=== PATIENT | female | born 1995 | race Caucasian/White ===

== ENCOUNTER 2016-08-19 11:47 | Emergency (ER) | payer OTHER ==
[2016-08-19 11:56] VITALS: TEMP 98.1; BMI 25.2
--- NOTE | 2016-08-19 12:13 | PDOC ---
History of Present Illness - General History Source: Patient, Family Exam Limitations: No Limitations - History of Present Illness Initial Comments: 08/19/16 13:27 The patient is a 21 year old female (16 weeks ) with no significant past medical history, who presents to the emergency department with rash and headache for the past 2 days. The patient states her rash began on her abdomen which spread to her extremities and trunk. She describes the rash as pink and painful that becomes itchy dry.The patient reports subjective fever 2 days ago which gradually resolved. She reports her mild diffuse headache is non throbbing and constant with nausea. Patient attributes her nausea after drinking a glass of milk. Patient states her last US was last week upstairs at [facility] which was normal. 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 Patient denies neck pain, neck stiffness, chills, photobphobia Patient denies any tick exposure or prolonged exposure to wooded environment or big bites. Patient denies novel food exposures, product exposures, new detergents. Patient denies any known allergies to medications. She denies chest pain or dizziness. She denies vomit, diarrhea or constipation. She denies dysuria, frequency, urgency or hematuria. Allergies: NKA Past surgical history: None Social history: None PCP: None <Chelsey Triplett - Last Filed: 08/19/16 13:27> <Americo Evangelista - Last Filed: 08/19/16 14:44> - General Chief Complaint: Rash Stated Complaint: RASH, Headache, 17wks Time Seen by Provider: 08/19/16 12:13 Past History <Chelsey Triplett - Last Filed: 08/19/16 13:27> - Past Medical History Other medical history: denies - Psycho/Social/Smoking Cessation Hx Suicidal Ideation: No Smoking History: Never smoked Hx Alcohol Use: No Drug/Substance Use Hx: No Substance Use Type: None <Americo Evangelista - Last Filed: 08/19/16 14:44> - Past Medical History Allergies/Adverse Reactions: Allergies Allergy/AdvReac Type Severity Reaction Status Date / Time No Known Allergies Allergy Verified 08/19/16 11:56 Home Medications: Ambulatory Orders Diphenhydramine HCl [Benadryl -] 25 mg PO Q6H PRN #28 capsule 08/19/16 Review of Systems - Review of Systems Able to Perform ROS?: Yes Comments:: 08/19/16 13:27 CONSTITUTIONAL: Absent: fever, chills, diaphoresis, generalized weakness, malaise, loss of appetite HEENT: Absent: rhinorrhea, nasal congestion, throat pain, throat swelling, difficulty swallowing, mouth swelling, ear pain, eye pain, visual Changes CARDIOVASCULAR: Absent: chest pain, syncope, palpitations, irregular heart rate, lightheadedness , peripheral edema RESPIRATORY: Absent: cough, shortness of breath, dyspnea with exertion, orthopnea, wheezing, stridor, hemoptysis GASTROINTESTINAL:+nausea. Absent: abdominal pain, abdominal distension, vomiting, diarrhea, constipation, melena, hematochezia GENITOURINARY: Absent: dysuria, frequency, urgency, hesitancy, hematuria, flank pain, genital pain MUSCULOSKELETAL: Absent: myalgia, arthralgia, joint swelling SKIN: + Rash, +Itching Absent: pallor HEMATOLOGIC/IMMUNOLOGIC: Absent: easy bleeding, easy bruising, lymphadenopathy, frequent infections ENDOCRINE: Absent: unexplained weight gain, unexplained weight loss, heat intolerance, cold intolerance NEUROLOGIC: +headache Absent: focal weakness or paresthesias, dizziness, unsteady gait, seizure, mental status changes, bladder or bowel incontinence PSYCHIATRIC: Absent: anxiety, depression, suicidal or homicidal ideation, hallucinations. <Chelsey Triplett - Last Filed: 08/19/16 13:27> *Physical Exam - Vital Signs Last Vital Signs Temp Pulse Resp BP Pulse Ox 98.1 F 92 H 18 101/55 99 08/19/16 11:54 08/19/16 11:54 08/19/16 11:54 08/19/16 11:54 08/19/16 11:54 - Physical Exam Comments: 08/19/16 13:28 GENERAL: Well developed, well nourished. Awake and alert. In no acute distress. HEENT: Normocephalic, atraumatic. PERRLA, EOMI. No conjunctival pallor. Sclera are non- icteric. Moist mucous membranes. Oropharynx is clear. NECK: Supple. Full ROM. No JVD. Carotid pulses 2+ and symmetric, without bruits. No thyromegaly. No lymphadenopathy. CARDIOVASCULAR: Regular rate and rhythm. No murmurs, rubs, or gallops. Distal pulses are 2+ and symmetric. PULMONARY: No evidence of respiratory distress. Lungs clear to auscultation bilaterally. No wheezing, rales or rhonchi. ABDOMINAL: Soft. Non-tender. Non-distended. No rebound or guarding. No organomegaly. Normoactive bowel sounds. MUSCULOSKELETAL Normal range of motion at all joints. No bony deformities or tenderness. No CVA tenderness. EXTREMITIES: No cyanosis. No clubbing. No edema. No calf tenderness. SKIN: +Erythematous, urticarial patches and macules at the abdomen, extremities, lower back, R ear and R cheek which jeramy. Warm and dry. Normal capillary refill. No jaundice. NEUROLOGICAL: Alert, awake, appropriate. Cranial nerves 2-12 intact. No deficits to light touch and temperature in face, upper extremities and lower extremities. No motor deficits in the in face, upper extremities and lower extremities. Normoreflexic in the upper and lower extremities. Normal speech. Toes are downgoing bilaterally. Gait is normal without ataxia. PSYCHIATRIC: Cooperative. Good eye contact. Appropriate mood and affect. <Chelsey Triplett - Last Filed: 08/19/16 13:27> - Vital Signs Last Vital Signs Temp Pulse Resp BP Pulse Ox 98.1 F 92 H 18 101/55 99 08/19/16 11:54 08/19/16 11:54 08/19/16 11:54 08/19/16 11:54 08/19/16 11:54 <Americo Evangelista - Last Filed: 08/19/16 14:44> ED Treatment Course - LABORATORY CBC & Chemistry Diagram: 08/19/16 13:05 <Chelsey Triplett - Last Filed: 08/19/16 13:27> - LABORATORY CBC & Chemistry Diagram: 08/19/16 12:36 08/19/16 13:05 <Americo Evangelista - Last Filed: 08/19/16 14:44> Medical Decision Making - Medical Decision Making 08/19/16 12:47 Dr. Barrientos paged via phone answering service at 12:[address] Barrientos returned the page at 1:11 PM and the patient case was discussed. <Chelsey Triplett - Last Filed: 08/19/16 13:27> - Medical Decision Making 05/04/17 12:48 The patient is well-appearing and in no acute distress Her chief complaint is rash, and she minimizes the headache, stating on further questioning that it has been coming and going for months The lesions are macular and patchy There are erythematous They jeramy The discrete lesions do not look urticarial, however, they are not changing location Furthermore, they seem to involve and eventually resolved with a central area of minimal crusting Will obtain labs including CBC, CMP, coags, ESR, CRP Will consult infectious disease 08/19/16 13:17 Case discussed with infectious disease They will see the patient in consultation 08/19/16 14:18 Labs noted including hypoalbuminemia with low total protein Urinalysis pending Other labs pending 08/19/16 14:22 The patient's headache has resolved 08/19/16 14:42 The patient was seen by infectious disease They feel that this rash is not infectious, but rather represents transient urticaria of The patient feels comfortable with the plan of discharge and will follow-up with infectious disease as well as obstetrics Clinical impression: Rash in I discussed the physical exam findings, ancillary test results and final diagnoses with the patient. I answered all of the patient's questions. The patient was satisfied with the care received and felt comfortable with the discharge plan and treatment plan. The patient will call their primary care physician within 24 hours to arrange follow-up and will return to the Emergency Department with any new, persistent or worsening symptoms. A portion of this note was documented by scribe services under my direction. I have reviewed the details of the note, within reason, and agree with the documentation with the following case summary and management plan written by me. <Americo Evangelista - Last Filed: 08/19/16 14:44> *DC/Admit/Observation/Transfer - Attestations Scribe Attestion: 08/19/16 13:28 Documentation prepared by Chelsey Triplett, acting as biomedical service engineer for Americo Evangelista MD/DO. <Chelsey Triplett - Last Filed: 08/19/16 13:27> <Americo Evangelista - Last Filed: 08/19/16 14:44> Diagnosis at time of Disposition: Rash - Discharge Dispostion Disposition: HOME Condition at time of disposition: Stable - Prescriptions Prescriptions: Diphenhydramine HCl [Benadryl -] 25 mg PO Q6H PRN #28 capsule PRN Reason: Rash - Referrals Referrals: Roby Barrientos MD [Staff Physician] - Call tomorrow - Patient Instructions Printed Discharge Instructions: DI for Rash, DI for Hives Additional Instructions: Return to the emergency department immediately with ANY new, persistent or worsening symptoms. You MUST call and follow up with your doctor tomorrow. Please make sure your doctor reviews the results of your emergency department evaluation.
[2016-08-19 13:21] LABS: BASOPHIL 0.4 % (0-2.0); EOSINOPHIL 2.3 % (0-4.5); MCH 30.9 pg (25.7-33.7); MCHC 34.2 g/dl (32.0-36.0); MEAN CELL VOLUME 90.5 fl (80-96); MEAN PLT VOLUME 8.1 fl (7.5-11.1); NEUTROPHILS 68.1 % (42.8-82.8); PLATELET COUNT 199 K/MM3 (134-434); RDW 13.7 % (11.6-15.6)
[2016-08-19 13:42] LABS: INR 1.03 (0.82-1.09); PROTHROMBIN TIME (PATIENT) 11.3 SEC (9.98-11.88)
[2016-08-19 13:43] LABS: ALBUMIN 2.8 g/dl (3.4-5.0); ANION GAP 10 (8-16); CALCIUM 8.4 mg/dL (8.5-10.1); CO2 24 mmol/L (21-32); CREATININE 0.5 mg/dL (0.55-1.02); GLUCOSE,RANDOM 74 mg/dL (74-106); SGOT/AST 16 U/L (15-37); SGPT/ALT 21 U/L (12-78)
[2016-08-19 13:45] LABS: ALK PHOS 59 U/L (45-117); BILIRUBIN,TOTAL 0.1 mg/dL (0.2-1.0); C-REACTIVE PROTEIN 0.4 MG/DL (0.00-0.3); TOT PROT 6.1 g/dl (6.4-8.2)
[2016-08-19 14:45] LABS: URINE APPEARANCE CLEAR; URINE BILIRUBIN NEGATIVE (NEGATIVE); URINE BLOOD NEGATIVE (NEGATIVE); URINE COLOR COLORLESS; URINE GLUCOSE (UA) NEGATIVE (NEGATIVE); URINE KETONE NEGATIVE (NEGATIVE); URINE NITRITE NEGATIVE (NEGATIVE); URINE PROTEIN NEGATIVE (NEGATIVE); URINE UROBILINOGEN NEGATIVE E.U./dl (0.2-1.0)
[2016-08-19 14:47] LABS: URINE LEUK ESTERASE TRACE (NEGATIVE)
[2016-08-19 14:48] LABS: URINE RBC <1 /hpf (0-3); URINE WBC 1 /hpf (3-5)
[2016-08-19 14:58] VITALS: BP 102/65; PULSE 98
[2016-08-19 19:38] LABS: HIV 1 & 2 AB NEGATIVE; HIV 1 AGp24 NEGATIVE
[2016-08-21 14:11] LABS: PARV B19 IGG 5.8 index (0.0-0.8); PARV B19 IGM 0.1 index (0.0-0.8)
[2016-08-21 16:16] LABS: VARICELLA-ZOSTER IGM < 0.91 index (0.00-0.90)
[2016-08-22 00:06] LABS: EPSTEIN BARR ANTIBODY IgM <36.0 U/mL (0.0-35.9)
== END 2016-08-19 14:59 | disposition home or self-care (01) ==
LOC: JER 11:47
DX: O99.89 Other specified diseases and conditions complicating pregnancy, childbirth and the puerperium (principal); R21 Rash and other nonspecific skin eruption; Z3A.17 17 weeks gestation of pregnancy
CPT/HCPCS: 36415; 80053; 81003; 81015; 84702; 85025; 85610; 85651; 85730; 86140; 86644; 86645; 86665; 86747; 86778; 86787; 87389; 99284-25

== ENCOUNTER 2017-01-09 06:30 | Inpatient (IN) | payer OTHER ==
[2017-01-09 07:17] VITALS: BMI 28.3
[2017-01-09] MEDS ORDERED: WITCH HAZEL 50% (TUCKS) 40 PAD/JAR PAD TP PRN (07:57)
[2017-01-09] MEDS ORDERED: BISACODYL 10 MG SUPP.RECT RC PRN (07:57)
[2017-01-09] MEDS ORDERED: BENZOCAINE 28 GM HEMORRHOIDAL OINTMENT TP PRN (07:57)
[2017-01-09] MEDS ORDERED: METHYLERGONOVINE MALEATE 0.2 MG/1 ML AMP IM PRN (07:57)
[2017-01-09] MEDS ORDERED: BENZOCAINE 20% 57 GM BOTTLE TP PRN (07:57)
--- NOTE | 2017-01-09 07:57 | HP ---
Past Medical History - Admission Chief Complaint: Labor pain History of Present Illness: 21 yo @ 38 weeks gestation, presents to L&D in active labor and pushing. History Source: Patient Limitations to Obtaining History: No Limitations - Past Medical History ...: 2 ...Para: 1 ...Term: 1 ...: 0 ...Spon : 0 ...Induced : 0 ...Multiple Gestation: 0 ...LMP: 04/25/16 ... Weeks Gestation by Dates: 37.0 ...EDC by Dates: 01/30/17 ...EDC by Sono: 01/22/17 - Past Surgical History Past Surgical History: Yes: None Hx Myomectomy: No Hx Transabdominal Cerclage: No - Smoking History Smoking history: Never smoked Have you smoked in the past 12 months: No - Alcohol/Substance Use Hx Alcohol Use: No History of Substance Use: reports: None - Social History History of Recent Travel: No Home Medications - Allergies Allergies/Adverse Reactions: Allergies Allergy/AdvReac Type Severity Reaction Status Date / Time No Known Allergies Allergy Verified 08/19/16 11:56 - Home Medications Home Medications: Ambulatory Orders Ferrous Sulfate [Feosol] 325 mg PO DAILY 01/09/17 Vit/Iron Fumarate/FA [ Tablet] 1 tablet PO DAILY 01/09/17 Review of Systems - Review of Systems Constitutional: reports: No Symptoms Eyes: reports: No Symptoms HENT: reports: No Symptoms Neck: reports: No Symptoms Cardiovascular: reports: No Symptoms Respiratory: reports: No Symptoms Gastrointestinal: reports: No Symptoms Genitourinary: reports: Pain Breasts: reports: No Symptoms Reported Musculoskeletal: reports: No Symptoms Integumentary: reports: No Symptoms Neurological: reports: No Symptoms Endocrine: reports: No Symptoms Hematology/Lymphatic: reports: No Symptoms Psychiatric: reports: No Symptoms Pain Intensity: 10 Physical Exam - Maternity Vital Signs: Vital Signs Temperature 98.2 F 01/09/17 06:30 Pulse Rate 74 01/09/17 07:31 Respiratory Rate 18 01/09/17 07:31 Blood Pressure 119/66 01/09/17 07:31 O2 Sat by Pulse Oximetry (%) Constitutional: Yes: Well Nourished Eyes: Yes: Conjunctiva Clear HENT: Yes: Atraumatic Neck: Yes: Supple Cardiovascular: Yes: Regular Rate and Rhythm Lungs: Clear to auscultation - Abdominal Exam/OB Number of Fetuses: Single Presentation: Vertex - Vaginal Exam/OB Vaginal Bleediing: Light Dilatation (cm): 9 Effacement (%): 100 Amniotic Membrane Status: Ruptured Station: 0 - Physical Exam ...Motor Strength: WNL Psychiatric: Yes: Alert, Oriented Problem List - Problems (1) Status post normal vaginal delivery Code(s): TWF8905 - Assessment/Plan Active labor Admit to L&D
[2017-01-09] MEDS ORDERED: D5W-LR W/ 20 UNITS OXYTOCIN 1,000 ML IV SCH (08:00)
[2017-01-09] MEDS ORDERED: DEXTROSE 5%-LACTATED RINGERS 1,000 ML IV SCH (08:00)
--- NOTE | 2017-01-09 08:03 | PN ---
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 Nose / Oropharynx suctioned @ perineum. Cord clamped and cut. Placenta expelled spontaneously intact. Laceration repaired with 2.0 Chromic.
[2017-01-09 08:14] LABS: INR 0.96 (0.82-1.09); PROTHROMBIN TIME (PATIENT) 10.5 SEC (9.98-11.88)
[2017-01-09 08:17] LABS: ACTIVATED PTT 27.5 SECONDS (26.9-34.4)
[2017-01-09] MEDS: ACETAMINOPHEN 325 MG TABLET (FP) PO PRN (08:43)
[2017-01-09] MEDS: IBUPROFEN 600 MG TABLET (FP) PO PRN (08:45)
[2017-01-09] MEDS: FERROUS SO4 325 MG TABLET (FP) PO SCH ×3 (08:46→17:41)
[2017-01-09 08:52] LABS: ANION GAP 10 (8-16); CALCIUM 7.8 mg/dL (8.5-10.1); CO2 20 mmol/L (21-32); CREATININE 0.6 mg/dL (0.55-1.02)
[2017-01-09 09:04] LABS: GLUCOSE,RANDOM 355 mg/dL (74-106)
[2017-01-09] MEDS ORDERED: LACTATED RINGERS SOLUTION 1,000 ML IV SCH (10:00)
[2017-01-09 10:49] LABS: BASOPHIL 0.3 % (0-2.0); EOSINOPHIL 0.8 % (0-4.5); MCH 30.4 pg (25.7-33.7); MCHC 33.3 g/dl (32.0-36.0); MEAN CELL VOLUME 91.3 fl (80-96); MEAN PLT VOLUME 8.9 fl (7.5-11.1); NEUTROPHILS 73.5 % (42.8-82.8); PLATELET COUNT 223 K/MM3 (134-434); RDW 13.8 % (11.6-15.6)
[2017-01-09] MEDS: PRENATAL VITAMINS W/ FOLIC ACID TABLET (FP) PO SCH (11:17)
[2017-01-09 12:45] LABS: ALBUMIN 2.1 g/dl (3.4-5.0); ALK PHOS 289 U/L (45-117); ANION GAP 8 (8-16); BILIRUBIN,TOTAL 0.4 mg/dL (0.2-1.0); CALCIUM 8.2 mg/dL (8.5-10.1); CO2 23 mmol/L (21-32); CREATININE 0.4 mg/dL (0.55-1.02); GLUCOSE,RANDOM 64 mg/dL (74-106); SGOT/AST 32 U/L (15-37); SGPT/ALT 42 U/L (12-78); TOT PROT 5.6 g/dl (6.4-8.2)
[2017-01-10] MEDS: ACETAMINOPHEN 325 MG TABLET (FP) PO PRN ×3 (01:51→21:19)
[2017-01-10] MEDS: IBUPROFEN 600 MG TABLET (FP) PO PRN ×3 (01:52→21:20)
[2017-01-10 07:54] LABS: BASOPHIL 0.3 % (0-2.0); EOSINOPHIL 1.7 % (0-4.5); MCH 30.4 pg (25.7-33.7); MEAN CELL VOLUME 89.3 fl (80-96); MEAN PLT VOLUME 8.4 fl (7.5-11.1); NEUTROPHILS 68.5 % (42.8-82.8); PLATELET COUNT 228 K/MM3 (134-434); RDW 13.6 % (11.6-15.6)
[2017-01-10] MEDS: FERROUS SO4 325 MG TABLET (FP) PO SCH ×3 (08:40→18:13)
[2017-01-10] MEDS: PRENATAL VITAMINS W/ FOLIC ACID TABLET (FP) PO SCH (09:27)
[2017-01-10] MEDS ORDERED: DIPHTH,PERTUSS(ACELL),TET 0.5 ML DISP.SYRIN IM ONE (10:00)
[2017-01-10] MEDS ORDERED: FLU VACC QS2017-18 36MOS UP/PF 60 MCG/0.5 ML SYRINGE IM ONE (10:00)
--- NOTE | 2017-01-10 10:04 | PN ---
Post Progress Note - Subjective Subjective: 21 yo Para 2 status post vaginal delivery, seen and evaluated. Doing well. Post Day: 1 Type of Delivery: Vital Signs: Vital Signs Temperature 97.9 F 01/10/17 09:13 Pulse Rate 73 01/10/17 09:13 Respiratory Rate 18 01/10/17 09:13 Blood Pressure 106/76 01/10/17 09:13 O2 Sat by Pulse Oximetry (%) Breast Exam: Yes: Soft Uterus: Yes: Fundus Firm Abdomen/GI: Yes: Abdomen soft, Tolerating PO Lochia: Yes: Rubra Lochia, amount: Small Extremities: Yes: Calves non-tender Perineum: Yes: Laceration (Healing) Activity: Ambulating - Labs Labs: CBC WBC 11.0 K/mm3 (4.0-10.0) H D 01/10/17 06:00 RBC 3.86 M/mm3 (3.60-5.2) 01/10/17 06:00 Hgb 11.7 GM/dL (10.7-15.3) 01/10/17 06:00 Hct 34.4 % (32.4-45.2) 01/10/17 06:00 MCV 89.3 fl (80-96) 01/10/17 06:00 MCH 30.4 pg (25.7-33.7) 01/10/17 06:00 MCHC 34.0 g/dl (32.0-36.0) 01/10/17 06:00 RDW 13.6 % (11.6-15.6) 01/10/17 06:00 Plt Count 228 K/MM3 (134-434) 01/10/17 06:00 MPV 8.4 fl (7.5-11.1) 01/10/17 06:00 Neutrophils % 68.5 % (42.8-82.8) 01/10/17 06:00 Lymphocytes % 23.6 % (8-40) 01/10/17 06:00 Monocytes % 5.9 % (3.8-10.2) 01/10/17 06:00 Eosinophils % 1.7 % (0-4.5) D 01/10/17 06:00 Basophils % 0.3 % (0-2.0) 01/10/17 06:00 Problem List - Problems (1) Status post normal vaginal delivery Code(s): APB5695 - Assessment/Plan Status post vaginal delivery Stable Continue routine care
[2017-01-10] MEDS ORDERED: SENNOSIDES/DOCUSATE COMBO (SENNA PLUS) TABLET (UD) PO PRN (22:00)
[2017-01-11] MEDS: FERROUS SO4 325 MG TABLET (FP) PO SCH ×2 (08:00→12:05)
[2017-01-11] MEDS: PRENATAL VITAMINS W/ FOLIC ACID TABLET (FP) PO SCH (09:13)
[2017-01-11] MEDS: IBUPROFEN 600 MG TABLET (FP) PO PRN (09:13)
[2017-01-11] MEDS: ACETAMINOPHEN 325 MG TABLET (FP) PO PRN (09:14)
[2017-01-11 13:44] VITALS: BP 99/56; PULSE 59; TEMP 97.6
== END 2017-01-11 13:00 | disposition home or self-care (01) | DRG 560 ==
LOC: JLDR 06:30 → J3W 08:09
PROVIDERS: ADMIT Obstetrics & Gynecology; ATTEND Obstetrics & Gynecology
PROC: 10E0XZZ Delivery of Products of Conception, External Approach (ICD-10-PCS; principal; 2017-01-09)
PROC: 0W8NXZZ Division of Female Perineum, External Approach (ICD-10-PCS; 2017-01-09)
PROC: 0KQM0ZZ Repair Perineum Muscle, Open Approach (ICD-10-PCS; 2017-01-09)
DX: O70.1 Second degree perineal laceration during delivery (principal); Z3A.38 38 weeks gestation of pregnancy; Z37.0 Single live birth
CPT/HCPCS: 36415; 80048; 80053; 85025; 85610; 85730; 86593; 86850; 86900; 86901; 90686; 90715; G0008

== ENCOUNTER 2019-11-06 18:00 | Inpatient (IN) | payer OTHER ==
[2019-11-06 18:40] VITALS: BMI 25.3
[2019-11-06 20:52] LABS: BASO % 0.2 % (0-2.0); EOS % 0.3 % (0-4.5); HEMATOCRIT 35.3 % (32.4-45.2); HEMOGLOBIN 12.1 GM/dL (10.7-15.3); LYMPH % 15.6 % (8-40); MCH 31.6 pg (25.7-33.7); MCHC 34.3 g/dl (32.0-36.0); MEAN PLT VOLUME 8.8 fl (7.5-11.1); MONO % 5.8 % (3.8-10.2); NEUT % 78.1 % (42.8-82.8); PLATELET COUNT 255 K/MM3 (134-434); RBC 3.84 M/mm3 (3.60-5.2); RDW 13.2 % (11.6-15.6); WHITE BLOOD COUNT 9.6 K/mm3 (4.0-10.0)
[2019-11-06] MEDS ORDERED: DEXTROSE 5%-LACTATED RINGERS 1,000 ML IV SCH (21:00)
--- NOTE | 2019-11-06 21:01 | HP ---
Past Medical History - Admission Chief Complaint: Contractions pain History of Present Illness: 24 yo @38 weeks gestation, EDC 11/21/19, admitted for augmentation of labor. Upon admission she was 4cm dilated. History Source: Patient Limitations to Obtaining History: No Limitations - Past Medical History ...: 3 ...Para: 2 ...Term: 2 ...: 0 ...Spon : 0 ...Induced : 0 ...Living Children: 2 ...Multiple Gestation: 0 ... Weeks Gestation by Dates: 38 ...EDC by Sono: 11/21/19 - Past Surgical History Past Surgical History: Yes: None Hx Myomectomy: No Hx Transabdominal Cerclage: No - Smoking History Smoking history: Never smoked Have you smoked in the past 12 months: No - Alcohol/Substance Use Hx Alcohol Use: No History of Substance Use: reports: None - Social History History of Recent Travel: No Home Medications - Allergies Allergies/Adverse Reactions: Allergies Allergy/AdvReac Type Severity Reaction Status Date / Time No Known Allergies Allergy Verified 11/06/19 18:40 - Home Medications Home Medications: Ambulatory Orders Vit/Iron Fum/Folic AC [ Tablet] 1 tablet PO DAILY 01/09/17 Family Medical History Family History: Unremarkable Review of Systems - Review of Systems Constitutional: reports: No Symptoms Eyes: reports: No Symptoms HENT: reports: No Symptoms Neck: reports: No Symptoms Cardiovascular: reports: No Symptoms Respiratory: reports: No Symptoms Gastrointestinal: reports: No Symptoms Genitourinary: reports: Pain Breasts: reports: No Symptoms Reported Musculoskeletal: reports: No Symptoms Integumentary: reports: No Symptoms Neurological: reports: No Symptoms Psychiatric: reports: No Symptoms Pain Intensity: 5 Physical Exam - Maternity Vital Signs: Vital Signs Temperature 98.5 F 11/06/19 19:00 Pulse Rate 104 H 11/06/19 19:00 Respiratory Rate 18 11/06/19 19:00 Blood Pressure 100/62 11/06/19 19:00 O2 Sat by Pulse Oximetry (%) Constitutional: Yes: No Distress Eyes: Yes: Conjunctiva Clear HENT: Yes: Atraumatic Neck: Yes: Supple Cardiovascular: Yes: Regular Rate and Rhythm Lungs: Clear to auscultation - Abdominal Exam/OB Number of Fetuses: Single Presentation: Vertex Category: I - Vaginal Exam/OB Vaginal Bleeding: No Dilatation (cm): 4 Effacement (%): 70 Amniotic Membrane Status: Ruptured Amniotic Fluid: Yes: Clear Presentation: Vertex/Position Station: -2 - Physical Exam Musculoskeletal: Yes: WNL Extremities: Yes: WNL ...Motor Strength: WNL Psychiatric: Yes: Alert, Oriented Problem List - Problems (1) 38 weeks gestation of Problems reviewed: Yes Code(s): Z3A.38 - 38 WEEKS GESTATION OF (2) Pain during labor Problems reviewed: Yes Code(s): O99.89 - OTH DISEASES AND CONDITIONS COMPL PREG/CHLDBRTH; R52 - PAIN, UNSPECIFIED Assessment/Plan 38 weeks gestation Contractions pain Admit for augmentation of labor Analgesia as needed Anticipate
[2019-11-06] MEDS ORDERED: BUTORPHANOL TARTRATE 2 MG/ML VIAL IVPUSH PRN (21:02)
[2019-11-06] MEDS ORDERED: PROMETHAZINE HCL 25 MG/1 ML VIAL IVPUSH ONE (21:02)
[2019-11-06] MEDS ORDERED: OXYTOCIN 30 UNITS in 0.9% NS 30 UNIT/500 ML INFUS.BAG IVPB ONE (21:06)
[2019-11-06 21:08] LABS: INR 0.92 (0.83-1.09); PROTHROMBIN TIME (PATIENT) 10.9 SEC (9.7-13.0)
[2019-11-06 21:11] LABS: ACTIVATED PTT 25.5 SECONDS (25.2-36.5)
[2019-11-06] MEDS ORDERED: OXYTOCIN 30 UNITS in 0.9% NS 30 UNIT/500 ML INFUS.BAG IVPB SCH (21:15)
[2019-11-06 21:19] LABS: BLOOD UREA NITROGEN 7.3 mg/dL (7-18); CALCIUM 8.7 mg/dL (8.5-10.1); CREATININE 0.5 mg/dL (0.55-1.3); POTASSIUM 3.9 mmol/L (3.5-5.1)
[2019-11-06] MEDS ORDERED: PROMETHAZINE HCL 25 MG/1 ML VIAL ONE (21:19)
[2019-11-06] MEDS ORDERED: BUTORPHANOL TARTRATE 2 MG/ML VIAL ONE (21:19)
[2019-11-06] MEDS ORDERED: OXYTOCIN 20 UNITS in 0.9% NS 20 UNIT/1,000 ML INFUS.BAG IV ONE (21:33)
[2019-11-06] MEDS ORDERED: BISACODYL 10 MG SUPP.RECT RC PRN (21:59)
[2019-11-06] MEDS ORDERED: METHYLERGONOVINE MALEATE 0.2 MG/1 ML AMP IM PRN (21:59)
[2019-11-06] MEDS ORDERED: WITCH HAZEL 50% (TUCKS) 40 PAD/JAR PAD TP PRN (21:59)
[2019-11-06] MEDS ORDERED: BENZOCAINE 28 GM HEMORRHOIDAL OINTMENT TP PRN (21:59)
[2019-11-06] MEDS ORDERED: BENZOCAINE 20% 57 GM BOTTLE TP PRN (21:59)
[2019-11-06] MEDS: FERROUS SO4 325 MG TABLET (FP) PO SCH (22:00)
[2019-11-06] MEDS ORDERED: OXYTOCIN 20 UNITS in 0.9% NS 20 UNIT/1,000 ML INFUS.BAG IV SCH (22:00)
--- NOTE | 2019-11-06 22:03 | PN ---
Delivery - Delivery Vaginal Delivery: Spontaneous Episiotomy/Laceration: 2nd degree EBL (cc): 300 Delivery, Single - Fosters Feeding Plan Initial Plan: Exclusive throughout hospitalization Remarks - Remarks Remarks: Normal spontaneous vaginal delivery of a live infant girl over second degree laceration. Nose / Oropharynx suctioned @ perineum. Cord clamped and cut. Baby handed to mother then to nurse. Placenta removed spontaneously intact. Laceration repaired with 2.0 chromic and 2.0 Biosyn. Mother in stable condition.
[2019-11-07] MEDS: IBUPROFEN 600 MG TABLET (FP) PO PRN ×4 (01:38→20:20)
[2019-11-07] MEDS: ACETAMINOPHEN 325 MG TABLET (FP) PO PRN ×4 (01:38→20:19)
--- NOTE | 2019-11-07 07:21 | PN ---
Post Progress Note - Subjective Subjective: 24 yo Para 3 status post vaginal delivery, seen and evaluated. Doing well. Post Day: 1 Type of Delivery: Vital Signs: Vital Signs Temperature 98.4 F 11/07/19 05:55 Pulse Rate 80 11/07/19 05:55 Respiratory Rate 18 11/07/19 05:55 Blood Pressure 116/66 11/07/19 05:55 O2 Sat by Pulse Oximetry (%) 99 11/07/19 00:26 Breast Exam: Yes: Soft Uterus: Yes: Fundus Firm Abdomen/GI: Yes: Abdomen soft, Tolerating PO Lochia: Yes: Rubra Lochia, amount: Moderate Extremities: Yes: Calves non-tender Perineum: Yes: Laceration (Healing) Activity: Ambulating - Labs Labs: CBC WBC 9.6 K/mm3 (4.0-10.0) 11/06/19 20:12 RBC 3.84 M/mm3 (3.60-5.2) 11/06/19 20:12 Hgb 12.1 GM/dL (10.7-15.3) 11/06/19 20:12 Hct 35.3 % (32.4-45.2) 11/06/19 20:12 MCV 92.0 fl (80-96) 11/06/19 20:12 MCH 31.6 pg (25.7-33.7) 11/06/19 20:12 MCHC 34.3 g/dl (32.0-36.0) 11/06/19 20:12 RDW 13.2 % (11.6-15.6) 11/06/19 20:12 Plt Count 255 K/MM3 (134-434) 11/06/19 20:12 MPV 8.8 fl (7.5-11.1) 11/06/19 20:12 Absolute Neuts (auto) 7.5 K/mm3 (1.5-8.0) 11/06/19 20:12 Neutrophils % 78.1 % (42.8-82.8) 11/06/19 20:12 Lymphocytes % 15.6 % (8-40) D 11/06/19 20:12 Monocytes % 5.8 % (3.8-10.2) 11/06/19 20:12 Eosinophils % 0.3 % (0-4.5) D 11/06/19 20:12 Basophils % 0.2 % (0-2.0) 11/06/19 20:12 Nucleated RBC % 0 % (0-0) 11/06/19 20:12 Problem List - Problems (1) 38 weeks gestation of Problems reviewed: Yes Code(s): Z3A.38 - 38 WEEKS GESTATION OF (2) Pain during labor Problems reviewed: Yes Code(s): O99.89 - OTH DISEASES AND CONDITIONS COMPL PREG/CHLDBRTH; R52 - PAIN, UNSPECIFIED (3) Status post normal vaginal delivery Problems reviewed: Yes Code(s): [id number] - Assessment/Plan Status post vaginal delivery Stable Continue routine care
[2019-11-07 09:09] LABS: BASO % 0.1 % (0-2.0); EOS % 0.2 % (0-4.5); HEMATOCRIT 33.7 % (32.4-45.2); HEMOGLOBIN 11.5 GM/dL (10.7-15.3); LYMPH % 13.9 % (8-40); MCH 31.6 pg (25.7-33.7); MCHC 34.3 g/dl (32.0-36.0); MEAN CELL VOLUME 92.1 fl (80-96); MEAN PLT VOLUME 8.4 fl (7.5-11.1); MONO % 5.2 % (3.8-10.2); NEUT % 80.6 % (42.8-82.8); PLATELET COUNT 211 K/MM3 (134-434); RBC 3.65 M/mm3 (3.60-5.2); RDW 13.1 % (11.6-15.6); WHITE BLOOD COUNT 12.6 K/mm3 (4.0-10.0)
[2019-11-07] MEDS: PRENATAL VITAMINS W/ FOLIC ACID TABLET (FP) PO SCH (10:00)
[2019-11-07] MEDS: FERROUS SO4 325 MG TABLET (FP) PO SCH ×2 (10:00→21:28)
[2019-11-07] MEDS ORDERED: SENNOSIDES/DOCUSATE COMBO (SENNA PLUS) TABLET (UD) PO PRN (22:00)
[2019-11-08] MEDS: ACETAMINOPHEN 325 MG TABLET (FP) PO PRN (08:05)
[2019-11-08] MEDS: IBUPROFEN 600 MG TABLET (FP) PO PRN (08:05)
[2019-11-08 09:30] VITALS: BP 99/58; PULSE 71; TEMP 97.7
[2019-11-08] MEDS: FERROUS SO4 325 MG TABLET (FP) PO SCH (09:53)
[2019-11-08] MEDS: PRENATAL VITAMINS W/ FOLIC ACID TABLET (FP) PO SCH (09:53)
--- NOTE | 2019-11-08 11:04 | DS ---
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 Vital Signs: Vital Signs Temperature 97.7 F 11/08/19 09:00 Pulse Rate 71 11/08/19 09:00 Respiratory Rate 18 11/08/19 09:00 Blood Pressure 99/58 L 11/08/19 09:00 O2 Sat by Pulse Oximetry (%) 99 11/07/19 00:26 Constitutional: Yes: Well Nourished Eyes: Yes: Conjunctiva Clear HENT: Yes: Atraumatic Neck: Yes: Supple Cardiovascular: Yes: Regular Rate and Rhythm Respiratory: Yes: Regular Gastrointestinal: Yes: Normal Bowel Sounds Pelvis: Yes: WNL External Genitalia: Yes: Normal Vaginal Exam: Yes: Normal Cervix: Yes: Normal Uterus: Yes: Firm ....Post : Yes: Uterus firm, Moderate lochia serosa Breast(s): Yes: WNL Musculoskeletal: Yes: WNL Extremities: Yes: WNL Neurological: Yes: Alert, Oriented ...Motor Strength: WNL Psychiatric: Yes: Alert, Oriented Labs: CBC, BMP 11/07/19 08:43 11/06/19 20:12 Delivery - Delivery Vaginal Delivery: Spontaneous Type of Anesthesia: Local Episiotomy/Laceration: None, 2nd degree EBL (cc): 300 Delivery, Single - Stages of Labor Date 1st Stage Initiatied: 11/06/19 Time 1st Stage Initiated: 07:00 Date 2nd Stage Initiated: 11/06/19 Time 2nd Stage Initiated: 21:30 Date of Delivery: 11/06/19 Time of Delivery: 21:33 Time Placenta Delivered: 21:36 - Condition of Infant 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 - 1 Minute Total Score: 9 5 Minutes Total Score: 9 - [place] Feeding Plan Initial Plan: Exclusive throughout hospitalization Discharge Summary Problems reviewed: Yes Reason For Visit: LABOR Current Active Problems 38 weeks gestation of (Acute) Pain during labor (Acute) Procedures: Principal: Normal spontaneous vaginal delivery Hospital Course: Routine care Health Concerns: None Plan of Treatment: Ambulation Analgesia as needed F/U with MD in 4 weeks Goals: Resume regular activities in 4-6 weeks Condition: Good - Instructions Diet, Activity, Other Instructions: Regular diet No douching, no sexual intercourse x 6 weeks F/U with MD in 4 weeks Disposition: HOME - Home Medications Comprehensive Discharge Medication List: Ambulatory Orders Vit/Iron Fum/Folic AC [ Tablet] 1 tablet PO DAILY 01/09/17
== END 2019-11-08 13:40 | disposition home or self-care (01) | DRG 560 ==
LOC: JLDR 18:00 → J3W 11-07 00:04
PROVIDERS: ADMIT Obstetrics & Gynecology; ATTEND Obstetrics & Gynecology
PROC: 10E0XZZ Delivery of Products of Conception, External Approach (ICD-10-PCS; principal; 2019-11-06)
PROC: 0KQM0ZZ Repair Perineum Muscle, Open Approach (ICD-10-PCS; 2019-11-06)
DX: O70.1 Second degree perineal laceration during delivery (principal); O99.89 Other specified diseases and conditions complicating pregnancy, childbirth and the puerperium; R52 Pain, unspecified; Z3A.38 38 weeks gestation of pregnancy; Z37.0 Single live birth
CPT/HCPCS: 36415; 59409; 80048; 85025; 85610; 85730; 86780; 86850; 86900; 86901; U0003